=== PATIENT | female | born 1970 | race Caucasian/White ===

== ENCOUNTER 2019-03-09 19:01 | Emergency (ER) | payer OTHER ==
[~2019-03-09] VITALS: Ht 160 cm; Wt 59.0 kg
[~2019-03-09 19:01] MED LIST: SINGULAIR10 MG PO; ZYRTEC10 MG PO
[2019-03-09] MEDS ORDERED: SKELAXIN800 MG PO (22:07)
[2019-03-09] MEDS ORDERED: DICLOFENAC SODI50 MG PO (22:07)
== END 2019-03-09 22:46 ==
LOC: ER 19:01
DX: S20.212A Contusion of left front wall of thorax, initial encounter (principal); V19.9XXA Pedal cyclist (driver) (passenger) injured in unspecified traffic accident, initial encounter; Y93.89 Activity, other specified; Y92.89 Other specified places as the place of occurrence of the external cause; Y99.8 Other external cause status